=== PATIENT | female | born 1980 | race African-American/Black ===

== ENCOUNTER 2016-08-16 16:21 | Outpatient (CLI) | payer OTHER ==
[~2016-08-16] VITALS: Ht 175.3 cm; Wt 119.0 kg
[~2016-08-16 16:21] MED LIST: PRENATAL TABLE1 EAC3 PO
[2016-08-16 16:32] VITALS: BP 145/80
[2016-08-16 17:35] VITALS: BP 144/75
[2016-08-16 18:13] LABS: EOSINOPHIL (%) 1.8 % (0-5); EOSINOPHIL COUNT 0.3 K/uL (0-0.3); HEMATOCRIT 38.2 % (36.0-46.0); IMMATURE GRANULOCYTE (%) 0.7 % (0.0-0.7); IMMATURE GRANULOCYTE COUNT 0.1 K/uL; INSTRUMENT ABS NEUTROPHIL CT 9.3 K/uL; LYMPHOCYTE COUNT 3.6 K/uL (1.0-2.8); MCH 25.8 PG (29.0-34.0); MCHC 32.2 G/DL (30.0-36.0); MCV 80.1 FL (83-99); MEAN PLAT.VOLUME 9.2 uM^3 (9.5-12.4); MONOCYTE (%) 6.4 % (3-12); MONOCYTE COUNT 0.9 K/uL (0-0.8); NEUTROPHIL (%) 65.8 % (45-76); NEUTROPHIL COUNT 9.3 K/uL (1.8-6.4); PLATELET COUNT 323 K/uL (156-360); RBC DIS.WIDTH-CV 16.3 % (11.8-14.6); RBC DIS.WIDTH-SD 46.5 % (39-53); RED BLOOD COUNT 4.77 M/uL (3.80-5.20); WHITE BLOOD COUNT 14.2 K/uL (4.1-10.2)
[2016-08-17] MEDS ORDERED: MOTRIN800 MG PO (17:09)
[2016-08-17] MEDS ORDERED: IBUPROFEN800 MG PO (18:29)
== END 2016-08-16 20:25 | disposition home or self-care (01) ==
LOC: LDRP-OP 16:21 → 2WEST 16:22
PROVIDERS: Obstetrics & Gynecology
DX: O20.0 Threatened abortion (principal); N88.3 Incompetence of cervix uteri; O09.522 Supervision of elderly multigravida, second trimester; Z3A.17 17 weeks gestation of pregnancy
CPT/HCPCS: 85025; G0378

== ENCOUNTER 2016-08-16 23:48 | Inpatient (IN) | payer OTHER ==
[2016-08-17] VITALS (16 sets, daily range): BP systolic 111–133; BP diastolic 57–85
[2016-08-17 04:29] LABS: BASOPHIL COUNT 0.1 K/uL (0-0.1); EOSINOPHIL (%) 1.1 % (0-5); EOSINOPHIL COUNT 0.2 K/uL (0-0.3); HEMATOCRIT 30.1 % (36.0-46.0); IMMATURE GRANULOCYTE (%) 0.8 % (0.0-0.7); IMMATURE GRANULOCYTE COUNT 0.2 K/uL; INSTRUMENT ABS NEUTROPHIL CT 14.7 K/uL; LYMPHOCYTE COUNT 4.7 K/uL (1.0-2.8); MCH 25.9 PG (29.0-34.0); MCHC 32.2 G/DL (30.0-36.0); MCV 80.3 FL (83-99); MEAN PLAT.VOLUME 9.4 uM^3 (9.5-12.4); MONOCYTE (%) 4.5 % (3-12); MONOCYTE COUNT 0.9 K/uL (0-0.8); NEUTROPHIL (%) 70.7 % (45-76); NEUTROPHIL COUNT 14.7 K/uL (1.8-6.4); PLATELET COUNT 272 K/uL (156-360); RBC DIS.WIDTH-CV 16.2 % (11.8-14.6); RED BLOOD COUNT 3.75 M/uL (3.80-5.20); WHITE BLOOD COUNT 20.8 K/uL (4.1-10.2)
[2016-08-17 08:15] LABS: AMPHETAMINES QUANT VALUE 0 NG/ML; BARBITUATES QUANT VALUE 0 NG/ML; BENZODIAZEPINES QUANT VALUE 0 NG/ML; BENZODIAZEPINES, URINE SCREEN Negative (200 ng/mL); MARIJUANA QUANT VALUE 0 NG/ML; OPIATES QUANTITATIVE VALUE 0 NG/ML; PHENCYCLIDINE QUANT VALUE 0 NG/ML
[2016-08-17 13:01] LABS: EOSINOPHIL (%) 0.2 % (0-5); HEMATOCRIT 32.9 % (36.0-46.0); IMMATURE GRANULOCYTE (%) 0.5 % (0.0-0.7); IMMATURE GRANULOCYTE COUNT 0.1 K/uL; INSTRUMENT ABS NEUTROPHIL CT 11.3 K/uL; LYMPHOCYTE COUNT 3.7 K/uL (1.0-2.8); MCH 26.7 PG (29.0-34.0); MCHC 32.8 G/DL (30.0-36.0); MCV 81.4 FL (83-99); MEAN PLAT.VOLUME 9.2 uM^3 (9.5-12.4); MONOCYTE COUNT 0.6 K/uL (0-0.8); NEUTROPHIL COUNT 11.3 K/uL (1.8-6.4); PLATELET COUNT 272 K/uL (156-360); RBC DIS.WIDTH-CV 15.8 % (11.8-14.6); RBC DIS.WIDTH-SD 47.5 % (39-53); RED BLOOD COUNT 4.04 M/uL (3.80-5.20); WHITE BLOOD COUNT 15.8 K/uL (4.1-10.2)
[2016-08-17] MEDS ORDERED: MOTRIN800 MG PO (17:09)
[2016-08-17] MEDS ORDERED: IBUPROFEN800 MG PO (18:29)
== END 2016-08-17 18:40 | disposition home or self-care (01) | DRG 770 ==
LOC: LDRP-OP 23:48 → 2WEST 23:49 → LDRP-OP 02-21 22:12
PROVIDERS: Obstetrics & Gynecology
PROC: 30233N1 Transfusion of Nonautologous Red Blood Cells into Peripheral Vein, Percutaneous Approach (ICD-10-PCS; principal; 2016-08-17)
PROC: 10D17ZZ Extraction of Products of Conception, Retained, Via Natural or Artificial Opening (ICD-10-PCS; principal; 2016-08-17)
DX: O03.1 Delayed or excessive hemorrhage following incomplete spontaneous abortion (principal); O03.39 Incomplete spontaneous abortion with other complications; O42.912 Preterm premature rupture of membranes, unspecified as to length of time between rupture and onset of labor, second trimester; Z3A.17 17 weeks gestation of pregnancy; D62 Acute posthemorrhagic anemia; O34.32 Maternal care for cervical incompetence, second trimester; O99.012 Anemia complicating pregnancy, second trimester; O09.522 Supervision of elderly multigravida, second trimester; G43.909 Migraine, unspecified, not intractable, without status migrainosus; E66.01 Morbid (severe) obesity due to excess calories; Z68.38 Body mass index [BMI] 38.0-38.9, adult; O99.214 Obesity complicating childbirth
CPT/HCPCS: 80306 90; 85025; 85025 91; 86900; 86901; 86920; 88305; G0378; J0153; J0330; J0690; J1100; J2210; J2405; J2590; J3010; J7120; P9016